=== PATIENT | female | born 1940 | race Caucasian/White ===

== ENCOUNTER 2018-05-12 07:04 | Day surgery (SDC) | payer OTHER ==
--- NOTE | 2018-05-11 21:52 | PDGENHP ---
History & Physical Chief Complaint: Left distal radius malunion, index finger extensor tendon rupture History of Present Illness: Rosy is a pleasant 77 year old female who sustained a left distal radius fracture 6 weeks ago. She was placed in a cast and had several falls onto the left wrist while in the cast. Two weeks ago, she noticed inability to extend the left index finger. She was found to have distal radius malunion as well as extensor tendon to index finger rupture. Risks, benefits and alternatives to conservative and surgical treatment were discussed and patient would like to proceed with surgical intervention. Pertinent Past, Social, Family History: PMH: Anxiety, breast cancer, hyperlipidemia, GERD, lung disease, osteoporosis. SH: non-contributory. FH: non-contributory Relevant Physical Exam: She is tender over the distal radius. Unable to actively extend the index finger MCPJ. Full passive ROM of the MCPJ. Sensation in the median nerve distribution is intact to light touch. 2+ radial pulse. Cardiorespiratory Assessment: RRR, CTAB
[2018-05-12] MEDS ORDERED: ceFAZolin 2 GM/DEXTROSE 100 ML IV ONE (07:26)
[2018-05-12] MEDS ORDERED: LR 1,000 ML IV ONE (08:17)
[2018-05-12] MEDS ORDERED: LIDOCAINE 1% 2 ML INJ ID PRN (08:17)
--- NOTE | 2018-05-12 08:43 | PDANEPAE ---
ANE Past Medical History - Cardiovascular History Hx Hypertension: No Hx Arrhythmias: No Hx Chest Pain: No Hx Coronary Artery / Peripheral Vascular Disease: No Hx CHF / Valvular Disease: No Hx Palpitations: No - Pulmonary History Hx COPD: No Hx Asthma/Reactive Airway Disease: No Hx Recent Upper Respiratory Infection: No Hx Oxygen in Use at Home: Yes O2 in Use at Home (L/minute): 2 Hx Sleep Apnea: No Sleep Apnea Screening Result - Last Documented: Negative Pulmonary History Comment: O2 at noc, interstitial lung disease R lung - Neurologic History Hx Cerebrovascular Accident: No Hx Seizures: No Hx Dementia: No - Endocrine History Hx Diabetes: No Obesity: no - Renal History Hx Renal Disorders: No - Liver History Hx Hepatic Disorders: No - Neurological & Psychiatric Hx Hx Neurological and Psychiatric Disorders: Yes Neurological / Psychiatric History Comment: Anxiety/depression. -currently undergoing testing for MSA/PSP vs. Parkinsons - Cancer History Hx Cancer: Yes Cancer History Comment: Breast Cancer - Congenital Disorder History Hx Congenital Disorders: No - GI History Hx Gastrointestinal Disorders: Yes Gastrointestinal History Comment: GERD - Surgical History Prior Surgeries: appendectomy, cholecysectomy, ruptured ovarian cyst, x2,. R arm sx with tomi, bilateral mastectomy ANE Review of Systems Review of Systems: - Exercise capacity METS (RN): 1 METS ANE Patient History - Allergies Allergies/Adverse Reactions: zolpidem [From Ambien] Allergy (Verified 05/12/18 07:54) Other-Enter Comments - Home Medications Home medications: home medication list seen and reviewed Home Medications: PARoxetine HCL [Paxil] 20 mg PO DAILY 10/01/10 [Last Taken 05/11/18] Atorvastatin Calcium [Lipitor 40 mg (RX)] 40 mg PO DAILY 10/31/12 [Last Taken ] Docusate Sodium [Colace 100 MG (OTC)] 100 mg PO BID 10/31/12 [Last Taken ] B12 06/12/14 [Last Taken 05/11/18] Calcium Carbonate [Calcium] 06/12/14 [Last Taken 05/11/18] Ferrous Sulfate, Dried [Iron] 06/12/14 [Last Taken 05/11/18] Magnesium 30 mg PO 06/12/14 [Last Taken 05/11/18] Carbidopa/Levodopa 05/12/18 [Last Taken 05/12/18] Gabapentin 05/12/18 [Last Taken 05/11/18] - NPO status NPO Status: no food or drink >8 hours NPO Since - Liquids (Date): 05/12/18 NPO Since - Liquids (Time): 06:00 NPO Since - Solids (Date): 05/11/18 NPO Since - Solids (Time): 19:00 - Anes Hx Anes Hx: no prior problems - Smoking Hx Smoking Status: Former smoker - Family Anes Hx Family Hx Anesthesia Complications: none ANE Labs/Vital Signs - Vital Signs Blood Pressure: 121/47 Heart Rate: 89 Respiratory Rate: 14 O2 Sat (%): 97 Height: 157.48 cm Weight: 40.823 kg ANE Physical Exam - Airway Neck exam: decreased ROM Mallampati Score: Class 3 Mouth exam: normal dental/mouth exam - Pulmonary Pulmonary: no respiratory distress, no rales or rhonchi, clear to auscultation, reduced air movement - Cardiovascular Cardiovascular: regular rate and rhythym, no murmur, rub, or gallop - ASA Status ASA Status: III ANE Anesthesia Plan Anesthesia Plan: GA w LMA Regional Anesthesia: single shot NB (Axillary)
[2018-05-12] MEDS ORDERED: fentaNYL 100 MCG/2 ML INJ ONE (08:45)
[2018-05-12] MEDS ORDERED: LIDOCAINE 2% JELLY 5 ML TUBE ONE (08:45)
[2018-05-12] MEDS ORDERED: PROPOFOL 200 MG/20 ML VIAL ONE (08:45)
[2018-05-12] MEDS ORDERED: ONDANSETRON 4 MG/2 ML VIAL ONE (08:45)
[2018-05-12] MEDS ORDERED: DEXAMETHASONE 4 MG/ML VIAL ONE (08:46)
[2018-05-12] MEDS ORDERED: BUPIVACAINE 0.25% 30 ML SDV ONE ×2 (08:48→09:23)
--- NOTE | 2018-05-12 08:57 | PDHPUP ---
History & Physical Update H&P update statement: This history and physical update is based on an assessment of the patient which was completed after admission or registration (within 24 hours), but prior to the surgery/procedure. H&P update: H&P reviewed & patient examined, no change in patient's condition since H&P completed
[2018-05-12] MEDS ORDERED: ONDANSETRON 4 MG/2 ML VIAL IVP PRN (10:27)
[2018-05-12] MEDS ORDERED: ACETAMINOPHEN 500 MG TAB PO PRN (10:27)
[2018-05-12] MEDS ORDERED: fentaNYL 100 MCG/2 ML INJ IVP PRN (10:27)
[2018-05-12] MEDS ORDERED: NS 500 ML IV PRN (10:27)
[2018-05-12] MEDS ORDERED: NALOXONE HCL 0.4 MG/ML INJ IVP PRN (10:27)
[2018-05-12] MEDS ORDERED: PROMETHAZINE HCL 25 MG/ML INJ IVP PRN (10:27)
[2018-05-12] MEDS ORDERED: HYDROCODONE/APAP 5/325 TAB PO PRN (10:27)
--- NOTE | 2018-05-12 10:50 | POSTOPPROG ---
Post Op Note Date of Operation: 05/12/18 Surgeon: Hussein Erickson Tare Worker: courtney Anesthesiologist: dudley Anesthesia: GET(General Endotracheal) Pre-op Diagnosis: Extensor tendon laceration Left index finger Post-op Diagnosis: same Procedure: 1. Ext tendon repair, 2. Distal radius debridement Findings: complete rupture EIP Inf/Abcess present in the surg proc area at time of surgery?: No EBL: Minimal Complications: none
--- NOTE | 2018-05-12 10:58 | POSTANESTH ---
Post Anesthetic Evaluation Cardiovascular Status: Normal, Stable, Similar to Pre-Op Cond Respiratory Status: Similar to Pre-op Cond. Level of Consciousness/Mental Status: Can Participate in Eval, Mildly Sleepy, Arousable Pain Control: Adequate, Prn Tx Ordered Nausea/Vomiting Control: Adequate, Prn Tx Ordered Complications Possibly Related to Anesthesia: None Noted
--- NOTE | 2018-05-12 11:48 | GOP ---
DATE OF OPERATION: 05/12/2018 SURGEON: Hussein Erickson MD CRITICAL CARE PHYSICIAN: Pacheco Roy, [employer] SIFTER, [facility] ANESTHESIA: Axillary block with LMA. ANESTHESIOLOGIST: Dr. Hdez PREOPERATIVE DIAGNOSIS: Left extensor indicis proprius rupture. POSTOPERATIVE DIAGNOSIS: Left extensor indicis proprius rupture. PROCEDURE PERFORMED: 1. Extensor tendon repair. 2. Debridement, distal radius. FINDINGS: INDICATIONS: The patient is a 77-year-old female who approximately 2 months ago sustained a distal radius fracture. It did heal in slight flexion, but within acceptable parameters; however, she had sudden loss of ability to extend the index finger. Decision was made to proceed with an extensor tendon repair, possible distal radial osteotomy and ORIF. DESCRIPTION OF PROCEDURE: After appropriate informed consent was obtained, the patient was taken to the operating room, placed supine on the operating table. Time-out was performed. Patient was identified. Correct site identified. She received 2 g of Ancef preoperatively. Performed an axillary block and LMA placement. Left upper extremity was prepped and draped in usual sterile fashion. I exsanguinated the limb, inflated tourniquet to 250 mm Hg. Total tourniquet time was 70 minutes. I made a dorsally based incision over the wrist and extensor indicis proprius tendons. I opened up the first, second, third extensor tendon compartments. She had a complete rupture of the extensor indicis proprius. There was prominence of the distal radius. I debrided this back with a rongeur and a rasp to smooth the rim so the tendon excursion across that was not abrupt. Then repaired back the extensor indicis proprius tendon using 4-0 Ethibond in a locking stitch configuration. She had a good excursion of the tendon without undue tension on the repair. The wound was irrigated and loosely closed the first, second compartments, left the retinaculum open over the third to give the tendon better excursion and to hopefully not impinge on the tendon potentiate a re-rupture. Skin was closed loosely with 4-0 nylon. I instilled 20 mL of 4% Marcaine plain around the incision. She was placed in an extension splint with the fingers in neutral extension, the wrist in slight extension awakened from anesthesia, taken to recovery room in satisfactory condition. There were no immediate intraoperative complications. Alonso Roy's assistance was required throughout entire case. COMPLICATIONS: None. DRAINS: None. /[id number]/MODL MTDD
[2018-05-12 12:13] VITALS: BP 126/83
== END 2018-05-12 12:10 | disposition home or self-care (01) ==
LOC: FSGY 07:04
PROVIDERS: ATTEND Orthopaedic Surgery
PROC: 0XQN0ZZ Repair Right Index Finger, Open Approach (ICD-10-PCS; principal; 2018-05-12 09:00)
DX: S66.321A Laceration of extensor muscle, fascia and tendon of left index finger at wrist and hand level, initial encounter (principal); X58.XXXA Exposure to other specified factors, initial encounter
CPT/HCPCS: J0690; J1100; J2405; J2704; J3010